=== PATIENT | male | born 1965 | race African-American/Black ===

== ENCOUNTER 2018-05-15 05:13 | Emergency (ER) | payer MEDICAID, OTHER ==
[~2018-05-15] VITALS: Ht 172.7 cm; Wt 83.0 kg
[~2018-05-15 05:13] MED LIST: EMTR200C3 PO; FLUC200T51 PO; TENOFOVIR; [UNRECOGNIZED DRUG - OTHER] PO; fluconazole
[2018-05-15 07:17] LABS: BASOPHILS % 0.8 % (0.0-2.0); EOSINOPHILS % 2.6 % (0.0-5.0); HEMATOCRIT. 51.4 % (42.0-52.0); HEMOGLOBIN. 17.9 g/dL (14.0-18.0); MEAN CORPUSCULAR HEMOGLOBIN 34.2 pg (28.0-32.0); MEAN CORPUSCULAR VOLUME 98.2 fL (80.0-94.0); MEAN PLATELET VOLUME 9.5 fl (7.4-10.4); MONOCYTES % 9.2 % (2.0-8.0); NEUTROPHILS % 64.4 % (40.0-76.0); PLATELET 267 x1000/uL (130-400); RED BLOOD CELL COUNT 5.23 mill/uL (4.7-6.1); RED CELL DISTRIBUTION WIDTH 13.5 % (11.6-14.6)
[2018-05-15 07:19] LABS: CHLORIDE 95 mEq/L (98-107)
[2018-05-15 09:50] VITALS: BP 171/102
== END 2018-05-15 09:52 | disposition left against medical advice (07) ==
LOC: ER 05:13
DX: N17.9 Acute kidney failure, unspecified (principal); R07.89 Other chest pain; I10 Essential (primary) hypertension; F15.10 Other stimulant abuse, uncomplicated; F17.200 Nicotine dependence, unspecified, uncomplicated
CPT/HCPCS: 36415; 71045; 83880; 84484; 93005; 99285

== ENCOUNTER 2022-10-04 20:42 | Emergency (ER) | payer OTHER ==
[~2022-10-04] VITALS: Ht 177.8 cm; Wt 90.0 kg
[2022-10-05] MEDS ORDERED: KETOROLAC 60MG/2ML VIAL IM ONE (03:45)
[2022-10-05] MEDS ORDERED: IBUP-2028 MT (03:48)
[2022-10-05 04:28] VITALS: BP 168/92
== END 2022-10-05 05:06 | disposition home or self-care (01) ==
LOC: ER 20:42
DX: M54.2 Cervicalgia (principal); G89.29 Other chronic pain; M54.89 Other dorsalgia; F15.10 Other stimulant abuse, uncomplicated; I10 Essential (primary) hypertension
CPT/HCPCS: 96372; 99283; J1885; Z7610

== ENCOUNTER 2022-11-01 01:25 | Emergency (ER) | payer OTHER ==
[~2022-11-01] VITALS: Ht 177.8 cm; Wt 70.0 kg
[~2022-11-01 01:25] MED LIST changes: +IBUP-2028 MT
[2022-11-01] MEDS ORDERED: ASPIRIN 325MG EC TABLET PO ONE (02:00)
[2022-11-01] MEDS ORDERED: NITROGLYCERIN 0.4MG TABLET SL SL PRN (02:00)
[2022-11-01 02:59] LABS: BASOPHILS % 1.1 % (0.0-2.0); EOSINOPHILS % 1.9 % (0.0-5.0); HEMATOCRIT. 40.1 % (42.0-52.0); HEMOGLOBIN. 13.2 g/dL (14.0-18.0); LYMPHOCYTES % 22.2 % (20.0-50.0); MEAN CORPUSCULAR VOLUME 97.3 fL (80.0-94.0); MEAN PLATELET VOLUME 7.9 fl (7.4-10.4); MONOCYTES % 6.6 % (2.0-8.0); NEUTROPHILS % 68.2 % (40.0-76.0); PLATELET 319 x1000/uL (130-400); RED BLOOD CELL COUNT 4.12 mill/uL (4.7-6.1); RED CELL DISTRIBUTION WIDTH 14.4 % (11.6-14.6)
[2022-11-01 03:00] LABS: CLARITY URINE CLEAR (CLEAR); COLOR URINE YELLOW (YELLOW); KETONES URINE NEGATIVE (NEGATIVE); LEUKOCYTE ESTERASE URINE NEGATIVE (NEGATIVE); NITRITE URINE NEGATIVE (NEGATIVE); OCCULT BLOOD URINE TRACE (NEGATIVE); PH URINE 5.5 (4.5-8.0); PROTEIN URINE 2+ (NEGATIVE); UROBILINOGEN URINE 0.2 E.U./dL (0.2-1.0)
[2022-11-01 03:17] LABS: CHLORIDE 114 mEq/L (98-107)
[2022-11-01 03:28] LABS: ETHANOL BLOOD < 10 mg/dL
[2022-11-01 03:58] LABS: *AMPHETAMINES SCREEN URINE NEGATIVE (NEGATIVE); *BARBITURATES SCREEN URINE NEGATIVE (NEGATIVE); *BENZODIAZEPINES SCREEN URINE NEGATIVE (NEGATIVE); *COCAINE SCREEN URINE PRESUMTIVE POSITIVE (NEGATIVE); CANNABINOID URINE SCREEN NEGATIVE (NEGATIVE); METHADONE URINE SCREEN NEGATIVE (NEGATIVE); OPIATES URINE SCREEN NEGATIVE (NEGATIVE); PHENCYCLIDINE URINE SCREEN PRESUMTIVE POSITIVE (NEGATIVE)
[2022-11-01 14:10] VITALS: BP 146/96
== END 2022-11-01 14:10 | disposition home or self-care (01) ==
LOC: ER 01:25
DX: R45.851 Suicidal ideations (principal); F15.10 Other stimulant abuse, uncomplicated; I10 Essential (primary) hypertension; Z20.822 Contact with and (suspected) exposure to COVID-19
CPT/HCPCS: 36415; 71045; 80053; 80305; 80307; 80320; 80329; 81003; 83880; 84484; 85025; 87426; 93005; 99285; C9803; G0480

== ENCOUNTER 2022-11-01 18:28 | Emergency (ER) | payer OTHER ==
[~2022-11-01] VITALS: Ht 172.7 cm; Wt 87.0 kg
[2022-11-01] MEDS ORDERED: KETOROLAC 30MG/ML VIAL IM ONE (22:15)
[2022-11-01 23:02] LABS: *AMPHETAMINES SCREEN URINE NEGATIVE (NEGATIVE); *BARBITURATES SCREEN URINE NEGATIVE (NEGATIVE); *BENZODIAZEPINES SCREEN URINE NEGATIVE (NEGATIVE); *COCAINE SCREEN URINE PRESUMTIVE POSITIVE (NEGATIVE); CANNABINOID URINE SCREEN PRESUMTIVE POSITIVE (NEGATIVE); METHADONE URINE SCREEN NEGATIVE (NEGATIVE); OPIATES URINE SCREEN NEGATIVE (NEGATIVE); PHENCYCLIDINE URINE SCREEN PRESUMTIVE POSITIVE (NEGATIVE)
[2022-11-01] MEDS ORDERED: COLCHICINE 0.6MG TABLET PO ONE (23:30)
[2022-11-01 23:43] LABS: EOSINOPHILS % 5.3 % (0.0-5.0); HEMATOCRIT. 36.3 % (42.0-52.0); LYMPHOCYTES % 23.6 % (20.0-50.0); MEAN CORPUSCULAR HEMOGLOBIN 31.7 pg (28.0-32.0); MEAN CORPUSCULAR VOLUME 95.6 fL (80.0-94.0); MEAN PLATELET VOLUME 8.2 fl (7.4-10.4); MONOCYTES % 8.4 % (2.0-8.0); NEUTROPHILS % 61.7 % (40.0-76.0); PLATELET 311 x1000/uL (130-400); RED CELL DISTRIBUTION WIDTH 14.4 % (11.6-14.6)
[2022-11-02 00:32] LABS: CHLORIDE 112 mEq/L (98-107)
[2022-11-02 01:15] LABS: ETHANOL BLOOD < 10 mg/dL
[2022-11-02 10:09] VITALS: BP 141/89
[2022-11-02] MEDS ORDERED: OLANZAPINE 10MG TABLET PO SCH (21:00)
[2022-11-03] MEDS ORDERED: FLUOXETINE HCL 20MG CAPSULE PO SCH (09:00)
== END 2022-11-02 10:23 | disposition home or self-care (01) ==
LOC: ER 18:28
DX: R45.851 Suicidal ideations (principal); F14.10 Cocaine abuse, uncomplicated; I10 Essential (primary) hypertension; Z20.822 Contact with and (suspected) exposure to COVID-19
CPT/HCPCS: 36415; 80053; 80305; 80307; 80320; 80329; 85025; 87426; 96372; 99285; C9803; J1885; G0480

== ENCOUNTER 2023-04-16 16:39 | Emergency (ER) | payer OTHER ==
[~2023-04-16] VITALS: Ht 172.7 cm; Wt 88.0 kg
[2023-04-16 16:40] VITALS: O2SAT 99
[2023-04-16] MEDS ORDERED: KETOROLAC 15MG/ML VIAL IM ONE (18:15)
[2023-04-16] MEDS ORDERED: TOPUD MT (18:30)
[2023-04-16] MEDS ORDERED: P20 MT (18:31)
[2023-04-16 18:55] VITALS: BP 141/86; PULSE 93; RESP 16; TEMP 98.7
== END 2023-04-16 18:56 | disposition home or self-care (01) ==
LOC: ER 16:39
DX: M10.9 Gout, unspecified (principal); F31.9 Bipolar disorder, unspecified; F12.90 Cannabis use, unspecified, uncomplicated; F14.90 Cocaine use, unspecified, uncomplicated; F15.90 Other stimulant use, unspecified, uncomplicated; I12.9 Hypertensive chronic kidney disease with stage 1 through stage 4 chronic kidney disease, or unspecified chronic kidney disease; N18.9 Chronic kidney disease, unspecified
CPT/HCPCS: 96372; 99283; J1885; Z7610